=== PATIENT | female | born 1985 | race African-American/Black ===

== ENCOUNTER 2016-10-27 16:58 | Emergency (ER) | payer OTHER, SELFPAY | END 2016-10-27 17:50 | disposition home or self-care (01) | LOC: MADERS 16:58 | DX: S39.012A Strain of muscle, fascia and tendon of lower back, initial encounter (principal); S16.1XXA Strain of muscle, fascia and tendon at neck level, initial encounter; S46.919A Strain of unspecified muscle, fascia and tendon at shoulder and upper arm level, unspecified arm, initial encounter; I10 Essential (primary) hypertension; V89.2XXA Person injured in unspecified motor-vehicle accident, traffic, initial encounter | CPT/HCPCS: 99283 ==

== ENCOUNTER 2016-12-22 12:10 | Outpatient (CLI) | payer MEDICAID, SELFPAY ==
[2016-12-22 12:37] LABS: Hemoglobin A1c 5.1 % (4.0-6.0)
[2016-12-22 12:38] LABS: Bilirubin Negative (Negative); Blood, Urine Negative (Negative); Clarity Hazy (Clear); Glucose, Urine (Dipstick) Negative (Negative); Leukocyte Negative (Negative); Nitrite Negative (Negative); Protein, Urine (Dipstick) Negative (Neg-Trace); RBC/HPF 0-3 HPF (0-3); Urobilinogen 0.2 mg/dL (0.2-1.0)
[2016-12-22 12:39] LABS: Bacteria/HPF Rare-Few HPF (None Seen); WBC/HPF 0-3 HPF (0-3)
[2016-12-22 12:43] LABS: #Basophils 0.1 thou/uL (0.0-0.2); #Lymphocytes 1.6 thou/uL (1.20-3.40); #Monocytes 0.3 thou/uL (0.11-0.59); #Neutrophils 3.4 thou/uL (1.40-6.50); %Basophils 2.6 % (0.0-1.0); %Eosinophils 0.7 % (0.0-10.0); %Lymphocytes 29.6 % (21.0-51.0); %Monocytes 4.8 % (0.0-10.0); %Neutrophils 62.2 % (42.0-75.0); ALT (SGPT) 12 U/L (8-55); AST (SGOT) 15 U/L (5-34); Albumin 4.1 g/dL (3.5-5.0); Alkaline Phosphatase 52 U/L (40-150); Anion Gap 7 mmol/L (10-20); BUN (Urea Nitrogen) 16 mg/dL (7.0-18.7); Calc. Creatinine Clearance 0 mL/min (70-130); Calcium 9.4 mg/dL (7.8-10.44); Carbon Dioxide 27 mmol/L (22-29); Cardiac Risk 2.8 (Less than 4.5); Chloride 106 mmol/L (98-107); Cholesterol 154 mg/dl (< 200 Desired); Estimated GFR-MDRD Greater than 90; Globulin 3.7 g/dL (2.4-3.5); Glucose 83 mg/dL (70-105); HDL Cholesterol 55 mg/dL (>60 Neg Risk); LDL Cholesterol, Calculated 90 mg/dL; Mean Corpuscular HGB CONC 31.4 g/dL (32.0-36.0); Mean Corpuscular Hemoglobin 27.2 pg (27.0-31.0); Mean Corpuscular Volume 86.6 fl (81.0-99.0); Mean Platelet Volume 8.9 fL (7.4-10.4); Platelet Count 227 thou/uL (130-400); Potassium 3.8 mmol/L (3.5-5.1); Protein, Total 7.8 g/dL (6.0-8.3); RBC Distribution Width 12.6 % (11.5-14.5); Red Blood Cell (RBC) Count 4.79 mill/uL (4.20-5.40); Sodium 136 mmol/L (136-145); Triglycerides 43 mg/dL (Less than 150); White Blood Cell (WBC) Count 5.5 thou/uL (4.8-10.8)
[2016-12-22 13:01] LABS: Free T4 (Free Thyroxine) 0.83 ng/dL (0.70-1.48); Thyroid Stimulating Hormone 0.8878 uIU/mL (0.35-4.94)
[2016-12-22 13:56] LABS: Bilirubin, Total 0.5 mg/dL (0.2-1.2)
== END 2016-12-22 12:11 | disposition home or self-care (01) ==
LOC: MADLABBHPM 12:10
PROVIDERS: ATTEND Family Medicine
DX: I10 Essential (primary) hypertension (principal)
CPT/HCPCS: 36415; 80053; 80061; 81001; 83036; 84439; 84443; 85025

== ENCOUNTER 2017-03-24 07:45 | Outpatient (CLI) | payer MEDICAID ==
[2017-03-24 09:04] LABS: Calc. Creatinine Clearance 0 mL/min (70-130); Calcium 9.2 mg/dL (7.8-10.44); Chloride 104 mmol/L (98-107); Estimated GFR-MDRD Greater than 90; Glucose 100 mg/dL (70-105); Potassium 3.5 mmol/L (3.5-5.1); Sodium 139 mmol/L (136-145)
[2017-03-24 10:21] LABS: BUN (Urea Nitrogen) 15 mg/dL (7.0-18.7); Carbon Dioxide 26 mmol/L (22-29)
== END 2017-03-24 07:46 | disposition home or self-care (01) ==
LOC: MADLABBHPM 07:45
PROVIDERS: ATTEND Family Medicine
DX: Z30.09 Encounter for other general counseling and advice on contraception (principal)
CPT/HCPCS: 36415; 80048

== ENCOUNTER 2017-07-27 11:33 | Emergency (ER) | payer MEDICAID | END 2017-07-27 12:12 | disposition home or self-care (01) | LOC: MADERS 11:33 | DX: J11.1 Influenza due to unidentified influenza virus with other respiratory manifestations (principal); I10 Essential (primary) hypertension; Z79.899 Other long term (current) drug therapy | CPT/HCPCS: 99283 ==

== ENCOUNTER 2017-07-30 17:35 | Emergency (ER) | payer MEDICAID ==
[2017-07-30] MEDS ORDERED: Benzonatate 100 MG CAP ONE (18:41)
[2017-07-30] MEDS ORDERED: AMOXicillin 250 MG CAP ONE (18:41)
== END 2017-07-30 18:45 | disposition home or self-care (01) ==
LOC: MADERS 17:35
DX: J20.9 Acute bronchitis, unspecified (principal); I10 Essential (primary) hypertension; Z79.899 Other long term (current) drug therapy
CPT/HCPCS: 99283

== ENCOUNTER 2018-04-19 20:41 | Emergency (ER) | payer OTHER, MEDICAID | END 2018-04-19 22:09 | disposition home or self-care (01) | LOC: MADERS 20:41 | DX: S39.82XA Other specified injuries of lower back, initial encounter (principal); I10 Essential (primary) hypertension; M19.90 Unspecified osteoarthritis, unspecified site; Z79.899 Other long term (current) drug therapy; X50.1XXA Overexertion from prolonged static or awkward postures, initial encounter | CPT/HCPCS: 99283 ==

== ENCOUNTER 2018-05-27 16:43 | Emergency (ER) | payer MEDICAID, OTHER ==
[2018-05-27] MEDS ORDERED: HYDROcodone/Acetaminophen 10/325 mg Tablet ONE (17:17)
[2018-05-27] MEDS ORDERED: predniSONE 20 MG TAB ONE (17:17)
== END 2018-05-27 17:25 | disposition home or self-care (01) ==
LOC: MADERS 16:43
DX: M79.631 Pain in right forearm (principal); I10 Essential (primary) hypertension; M19.90 Unspecified osteoarthritis, unspecified site; Z79.899 Other long term (current) drug therapy
CPT/HCPCS: 99283; J7506

== ENCOUNTER 2018-06-04 17:54 | Emergency (ER) | payer MEDICAID, OTHER | END 2018-06-04 18:22 | disposition home or self-care (01) | LOC: MADERS 17:54 | DX: M54.5 Low back pain (principal); M25.571 Pain in right ankle and joints of right foot; I10 Essential (primary) hypertension; Z79.899 Other long term (current) drug therapy | CPT/HCPCS: 99283 ==

== ENCOUNTER 2019-03-16 20:38 | Emergency (ER) | payer MEDICAID | END 2019-03-16 21:04 | disposition home or self-care (01) | LOC: MADERS 20:38 | DX: M25.511 Pain in right shoulder (principal); M19.90 Unspecified osteoarthritis, unspecified site; I10 Essential (primary) hypertension | CPT/HCPCS: 99281 ==

== ENCOUNTER 2019-05-20 15:58 | Emergency (ER) | payer MEDICAID ==
[2019-05-20] MEDS ORDERED: Ketorolac Tromethamine 60 MG/2 ML VIAL ONE (17:32)
[2019-05-20] MEDS ORDERED: Cyclobenzaprine 10 MG TAB ONE (17:32)
== END 2019-05-20 17:43 | disposition home or self-care (01) ==
LOC: MADERS 15:58
DX: S46.911A Strain of unspecified muscle, fascia and tendon at shoulder and upper arm level, right arm, initial encounter (principal); I10 Essential (primary) hypertension; M19.90 Unspecified osteoarthritis, unspecified site; Z79.899 Other long term (current) drug therapy; X50.9XXA Other and unspecified overexertion or strenuous movements or postures, initial encounter
CPT/HCPCS: 96372; 99283; J1885

== ENCOUNTER 2020-09-07 12:13 | Outpatient (CLI) | payer OTHER ==
[2020-09-07 12:39] LABS: Bilirubin Negative (Negative); Blood, Urine Negative (Negative); Clarity Slightly Cloudy (Clear); Glucose, Urine (Dipstick) Negative (Negative); Ketone, Urine Negative (Negative); Leukocyte Trace (Negative); Nitrite Positive (Negative); Protein, Urine (Dipstick) Negative (Neg-Trace); Urobilinogen 0.2 mg/dL (Less than 2)
[2020-09-07 12:40] LABS: RBC/HPF 0-3 HPF (0-3); Specific Gravity, Urine 1.017 (1.002-1.036)
[2020-09-07 12:42] LABS: Bacteria/HPF 3+ HPF (None Seen)
== END 2020-09-07 12:14 | disposition home or self-care (01) ==
LOC: MADLAB 12:13
PROVIDERS: ATTEND Family Medicine
DX: R82.90 Unspecified abnormal findings in urine (principal)
CPT/HCPCS: 81001; 87077; 87086; 87186

== ENCOUNTER 2020-12-19 19:11 | Emergency (ER) | payer MEDICAID, OTHER | END 2020-12-19 20:29 | disposition home or self-care (01) | LOC: MADERS 19:11 | DX: J06.9 Acute upper respiratory infection, unspecified (principal); M19.90 Unspecified osteoarthritis, unspecified site; I10 Essential (primary) hypertension | CPT/HCPCS: 99283 ==

== ENCOUNTER 2021-01-27 01:10 | Emergency (ER) | payer OTHER ==
[2021-01-27] MEDS ORDERED: Iopamidol 370 76% 100 ML VIAL IV ONE (01:11)
[2021-01-27 01:51] LABS: Band 1 % (5-11); Eosinophils 1 % (0-10); Hemoglobin 12.4 g/dL (12.0-16.0); Hypochromia SLIGHT = 6-15 cells (100X) (0-5/hpf); Lymphocytes 26 % (21-51); MDiff Complete? YES; Mean Corpuscular HGB CONC 30.4 g/dL (32.0-36.0); Mean Corpuscular Hemoglobin 26.9 pg (27.0-31.0); Mean Corpuscular Volume 88.5 fL (78.0-98.0); Mean Platelet Volume 8.8 fL (7.4-10.4); Monocytes 1 % (0-10); Neutrophil 71 % (42-75); Platelet Count 214 thou/uL (130-400); Platelet Morphology Comment Appears Adequate; RBC Distribution Width 12.2 % (11.5-14.5); Red Blood Cell (RBC) Count 4.62 mill/uL (4.20-5.40); White Blood Cell (WBC) Count 6.7 thou/uL (4.8-10.8)
[2021-01-27 01:52] LABS: BHCG - Serum Negative (NEGATIVE); Pregs Control Background? CLEAR/WHITE (CLR/WHITE); Pregs Control Bar Appear? YES (CONTROL BAR)
[2021-01-27 01:53] LABS: ALT (SGPT) 15 U/L (8-55); AST (SGOT) 15 U/L (5-34); Albumin 3.5 g/dL (3.5-5.0); Alkaline Phosphatase 48 U/L (40-110); Anion Gap 10 mmol/L (10-20); BUN (Urea Nitrogen) 16 mg/dL (7.0-18.7); Bilirubin, Total 0.2 mg/dL (0.2-1.2); Calc. Creatinine Clearance 0 mL/min (70-130); Calcium 8.4 mg/dL (7.8-10.44); Carbon Dioxide 23 mmol/L (22-29); Chloride 110 mmol/L (98-107); Globulin 2.7 g/dL (2.4-3.5); Glucose 103 mg/dL (70-105); Lipase 25 U/L (8-78); Magnesium 1.8 mg/dL (1.6-2.6); Potassium 3.9 mmol/L (3.5-5.1); Protein, Total 6.2 g/dL (6.0-8.3); Sodium 139 mmol/L (136-145)
[2021-01-27 03:14] LABS: Hemoglobin 11.9 g/dL (12.0-16.0)
[2021-01-27] MEDS ORDERED: Morphine 4 MG/ML VIAL ONE (03:40)
== END 2021-01-27 04:23 | disposition short-term general hospital (02) ==
LOC: MADERS 01:10
DX: K66.1 Hemoperitoneum (principal); N83.291 Other ovarian cyst, right side; I10 Essential (primary) hypertension; M06.9 Rheumatoid arthritis, unspecified; Z79.899 Other long term (current) drug therapy
CPT/HCPCS: 36415; 74177; 80053; 83690; 83735; 84703; 85025; 96374; J2270; Q9967

== ENCOUNTER 2021-03-22 20:26 | Outpatient (CLI) | payer OTHER | END 2021-03-22 20:27 | disposition home or self-care (01) | LOC: MADLAB 20:26 | PROVIDERS: ATTEND Family Medicine | DX: N89.8 Other specified noninflammatory disorders of vagina (principal) | CPT/HCPCS: 87480; 87510; 87660 ==

== ENCOUNTER 2021-03-22 20:29 | Outpatient (CLI) | payer OTHER | END 2021-03-22 20:30 | disposition home or self-care (01) | LOC: MADLAB 20:29 | PROVIDERS: ATTEND Family Medicine | DX: Z12.4 Encounter for screening for malignant neoplasm of cervix (principal) | CPT/HCPCS: 88142; G0123 ==

== ENCOUNTER 2022-03-21 00:07 | Emergency (ER) | payer OTHER ==
[2022-03-21] MEDS ORDERED: Proparacaine 0.5% Opth 15 ML BOT ONE (00:19)
[2022-03-21] MEDS ORDERED: Fluorescein Opthalmic Strip ONE (00:19)
[2022-03-21] MEDS ORDERED: Erythromycin Base 0.5% Ophth Oint 3.5 gm Tube ONE (06:40)
== END 2022-03-21 00:51 | disposition home or self-care (01) ==
LOC: MADERS 00:07
DX: L30.8 Other specified dermatitis (principal); I10 Essential (primary) hypertension; M19.90 Unspecified osteoarthritis, unspecified site; M06.9 Rheumatoid arthritis, unspecified
CPT/HCPCS: 99283

== ENCOUNTER 2023-08-26 19:15 | Emergency (ER) | payer OTHER ==
[2023-08-26] MEDS ORDERED: Benzonatate 100 MG CAP ONE (19:45)
== END 2023-08-26 20:40 | disposition home or self-care (01) ==
LOC: MADERS 19:15
DX: J06.9 Acute upper respiratory infection, unspecified (principal); I10 Essential (primary) hypertension; Z79.899 Other long term (current) drug therapy
CPT/HCPCS: 71046

== ENCOUNTER 2024-04-10 09:59 | Emergency (ER) | payer OTHER ==
[2024-04-10] MEDS ORDERED: Albuterol 200 PUFF (6.7GM INHALER) ONE (10:27)
[2024-04-10] MEDS ORDERED: Dexamethasone 10 MG/ML VIAL ONE (10:27)
[2024-04-10] MEDS ORDERED: Albuterol 200 PUFF (6.7GM INHALER) INH SCH (10:45)
[2024-04-10] MEDS ORDERED: Dexamethasone 10 MG/ML VIAL IM SCH (10:45)
[2024-04-10 10:50] LABS: Pregnancy Test - Urine (BHCG) Negative (Negative); Pregu Control Background? CLEAR/WHITE (CLR/WHITE); Pregu Control Bar Appear? YES (CONTROL BAR); Specific Gravity 1.017 (1.002-1.036)
== END 2024-04-10 11:15 | disposition home or self-care (01) ==
LOC: MADERS 09:59
DX: J20.9 Acute bronchitis, unspecified (principal); I10 Essential (primary) hypertension; Z79.899 Other long term (current) drug therapy
CPT/HCPCS: 71046; 81025; 96372; J1100

== ENCOUNTER 2025-02-08 18:56 | Emergency (ER) | payer OTHER ==
[2025-02-08] MEDS ORDERED: Acetaminophen 500 MG TAB ONE (19:19)
[2025-02-08 19:22] LABS: Glucose, Urine (Dipstick) Negative (Negative); Leukocyte Negative (Negative); Protein, Urine (Dipstick) 30 mg/dL (Neg-Trace); Specific Gravity, Urine Greater/Equal 1.030 (1.005-1.030)
[2025-02-08 19:24] LABS: Bacteria/HPF 3+ HPF (None Seen); CAUTI Indications for Culture Pelvic or flank pain; RBC/HPF 0-3 HPF (0-3)
[2025-02-08 19:25] LABS: Pregnancy Test - Urine (BHCG) POSITIVE (Negative); Pregu Control Background? CLEAR/WHITE (CLR/WHITE); Pregu Control Bar Appear? YES (CONTROL BAR); Urine Culture Reflex No No
== END 2025-02-08 19:38 | disposition home or self-care (01) ==
LOC: MADERS 18:56
DX: Z33.1 Pregnant state, incidental (principal); R51.9 Headache, unspecified; R12 Heartburn; I10 Essential (primary) hypertension; E78.5 Hyperlipidemia, unspecified
CPT/HCPCS: 81001; 81025; 87077; 87086; 87186; 99283

== ENCOUNTER 2025-03-22 07:43 | Emergency (ER) | payer OTHER ==
[2025-03-22 08:20] LABS: Glucose, Urine (Dipstick) Negative (Negative); Leukocyte Small (Negative); Protein, Urine (Dipstick) Trace mg/dL (Neg-Trace); Specific Gravity, Urine 1.020 (1.005-1.030)
[2025-03-22 08:35] LABS: Bacteria/HPF 2+ HPF (None Seen); CAUTI Indications for Culture Dysuria,urgency,freq
[2025-03-22 08:37] LABS: Hematocrit 40.3 % (36.0-47.0); Hemoglobin 12.7 g/dL (12.0-16.0); Mean Corpuscular Hemoglobin 27.4 pg (27.0-31.0); Mean Corpuscular Volume 87.1 fl (78.0-98.0); Platelet Count 242 10x3/uL (130-400); Red Blood Cell (RBC) Count 4.63 mill/uL (4.20-5.40); White Blood Cell (WBC) Count 4.5 10x3/uL (4.8-10.8)
[2025-03-22 08:37] LABS: Urine Culture Reflex No No
[2025-03-22 08:40] LABS: ALT (SGPT) 12 U/L (Less than 34); AST (SGOT) 17 U/L (11-34); Albumin 4.1 g/dL (3.1-4.5); Alkaline Phosphatase 54 U/L (40-110); Anion Gap 14 mmol/L (10-20); BUN (Urea Nitrogen) 12 mg/dL (7.0-18.7); Bilirubin, Total 0.3 mg/dL (0.3-1.2); Calc. Creatinine Clearance 0 mL/min (70-130); Calcium 8.8 mg/dL (7.8-10.44); Carbon Dioxide 23 mmol/L (22-29); Chloride 107 mmol/L (98-107); Globulin 3.1 g/dL (2.4-3.5); Glucose 99 mg/dL (70-105); Potassium 4.0 mmol/L (3.5-5.1); Sodium 140 mmol/L (136-145)
[2025-03-22 08:42] LABS: Manual Diff?? YES
[2025-03-22 08:43] LABS: MDiff Complete? YES; Platelet Adequacy Comment Appears Adequate
[2025-03-22] MEDS ORDERED: Losartan 25 MG TAB ONE (09:06)
== END 2025-03-22 09:31 | disposition home or self-care (01) ==
LOC: MADERS 07:43
DX: N93.9 Abnormal uterine and vaginal bleeding, unspecified (principal); I10 Essential (primary) hypertension; Z79.899 Other long term (current) drug therapy
CPT/HCPCS: 36415; 80053; 81001; 84702; 85025; 86900; 86901; 99284